=== PATIENT | male | born 1955 | race Caucasian/White ===

== ENCOUNTER 2018-01-10 11:55 | Inpatient (IN) | payer MEDICARE ==
[2018-01-10] VITALS (12 sets, daily range): BP systolic 97–134; BP diastolic 60–86; BMI 28.1
[~2018-01-10] VITALS: Ht 185.4 cm; Wt 97.8 kg
--- NOTE | ~2018-01-10 | EC ---
PATIENT:JAN CAMERON DATE OF SERVICE: 01/10/18 SEX: M MEDICAL RECORD: [id number] DATE OF : 53 [facility] AGE OF PATIENT: 62 ADMISSION DATE: 01/10/18 REFERRING PHYSICIAN: INTERPRETING PHYSICIAN: JOHN KENNY MD ECHOCARDIOGRAM REPORT ECHO CHARGES 5 ECHO LIMITED Date: 01/12/18 CLINICAL DIAGNOSIS: CHF HX OF CAD ECHOCARDIOGRAPHIC MEASUREMENTS (adult normal given) AC root (d.<3.7cm) cm LV Septum d (<1.2 cm> cm Valve Excursion cm LV Septum (systole) cm Left Atria (s.<4.0cm> cm LVPW d(<1.2cm) cm RV (d.<2.3cm) 3.8 cm LVPW (sytole) cm LV diastole(<5.6CM) 5.9 cm MV E-F(>70mm/sec) cm LV systole 4.5 cm LVOT Diameter cm MV exc.(>10mm) cm Est.ejection fraction (50-75%) % DOPPLER: LVIT cm/sec A cm/sec E cm/sec LA cm/sec RVSP 20 mmHg LVOT cm/sec AOP1/2T m/s Asc. Ao cm/sec RVOT cm/sec RA cm/sec PA cm/sec AV Gradient Peak mmHg AV Mean mmHg AV Area cm MV Gradient Peak mmHg MV Mean mmHg MV Area cm COMMENTS: Construction Executive: 2 BEBO SHAHID Air Battle Manager: 4 Dr. Kenny TAPE# PACS Pericardial Effusion N DATE OF SERVICE: PCEDURE: Transthoracic echocardiogram. FINDINGS: Limited study for function. The patient's left ventricular function is normal. The left ventricular size is upper limits of normal. There are no obvious regional wall motion abnormalities. Ejection fraction is 60% to 65%. TRANSINT:[id number] Voice Confirmation ID: [id number] DOCUMENT ID: [id number] ECHOCARDIOGRAM REPORT [id number] JAN CAMERON JOHN KENNY MD CC: [id number] DICTATION DATE: 01/13/18 1044 REMOTE SENSING SCIENTIST: 01/13/18 1141 ADM IN [place] [id number] [place] [address]
--- NOTE | ~2018-01-10 | CN ---
PATIENT NAME:JAN CHOUDHARY MEDICAL RECORD: [id number] : 53 LOCATION:D. D.1213 ADMIT DATE: 01/10/18 ACCOUNT: [id number] CONSULTING PHYSICIAN: KVNG HART MD REFERRING PHYSICIAN: CRISTOFER HAMEED MD DATE OF CONSULTATION: 01/13/2018 CONSULT REQUESTING PHYSICIAN: Vince Vaughn MD REASON FOR CONSULTATION: Pneumonia, positive D-dimer. HISTORY OF PRESENT ILLNESS: Mr. Choudhary is a 62-year-old gentleman admitted on 01/10/2018 with shortness of breath, pneumonia, and acute exacerbation of COPD. On arrival to the ER, the patient was in atrial fibrillation with RVR. Chest radiograph showed infiltrate. Now, he is feeling better, he is breathing better. REVIEW OF SYSTEMS: As in history of present illness. PAST MEDICAL HISTORY: 1. COPD. 2. Chronic hypoxic respiratory failure. 3. Congestive heart failure. 4. Diabetes mellitus. 5. Arthritis. 6. Chronic backache. 7. Functional paraplegia, the patient is wheelchair and bedbound. PAST SURGICAL HISTORY: 1. He has abdominal surgery, laparotomy. 2. PEG placement. 3. Hip surgery. 4. History of tracheostomy in the past. ALLERGIES: HE IS ALLERGIC TO HALOPERIDOL. MEDICATIONS: On Beyond Credentials is reviewed. PERSONAL AND SOCIAL HISTORY: The patient is still current everyday smoker. He is also smoking marijuana. He is a nondrinker. FAMILY HISTORY: Significant for cardiovascular diseases. PHYSICAL EXAMINATION: GENERAL: Now, the patient is lying comfortably in bed. He is not in acute distress. VITAL SIGNS: The blood pressure is 137/77, pulse is 97, respiration is 18, temperature 99.1, SPO2 is 96% on 2 liters nasal cannula. HEENT: Conjunctivae are pink. Sclerae are not icteric. NECK: Supple. There is no JVD. CHEST: The chest excursion is minimal on both sides. There is a crackle at the right base. HEART: Rate and rhythm irregular. Normal sound. No murmur. ABDOMEN: Soft, bowel sounds present. No hepatosplenomegaly. RECTAL: Deferred. CONSULT REPORT [id number] JAN CHOUDHARY EXTREMITIES: No cyanosis, no clubbing. There is no pedal edema. CENTRAL NERVOUS SYSTEM: The patient is awake and alert. There is no obvious cranial nerve abnormality. The patient has a functional paraplegia. OTHER LABORATORY DATA: CBC: WBC is 6.5, hemoglobin is 8.8, hematocrit is 27.2, the platelet count 141. Chemistry: Sodium is 140, potassium 3.4, BUN is 27, creatinine is 1.8, it improved from 2. ABG on admission; the pH is 7.44, pCO2 is 52.1, the pO2 is 67, bicarb is 35.7, the saturation is 93.3%. This was done under 9 liters nasal cannula. IMPRESSION: 1. Iduka-rw-nepxvjz hypoxic respiratory failure. The patient required 6 liter oxygen nasal cannula while the patient is just on 2 liters at home. 2. Acute exacerbation of COPD. 3. Pneumonia, right lower lobe, most likely community-acquired pneumonia. 4. Atrial fibrillation with RVR. 5. Tobacco dependence syndrome. 6. Xoowv-aj-vutcllt kidney disease. 7. Anemia. 8. Functional paraplegia. RECOMMENDATION: 1. Continue Rocephin. I will add Levaquin IV. 2. Brovana/budesonide nebulizer. 3. Albuterol/ipratropium nebulizer. 4. Supplemental oxygen. The patient's V/Q scan is low probability due to pneumonia in the right lower lobe. I will check ultrasound of the lower extremity to rule out any DVT. The patient is high risk for the DVT due to his functional paraplegia. 5. Follow up labs and chest radiograph in the morning. 6. Anticoagulation, I will leave to the cardiology for atrial fibrillation. Dr. Vaughn, thank you for involving me in the care of Mr. Choudhary. TRANSINT:[id number] Voice Confirmation ID: [id number] DOCUMENT ID: [id number] KVNG HART MD at 1711 CC: [id number] DICTATION DATE: 01/13/18 1445 DRY PAN FEEDER: 01/13/18 1547 DIS IN 01/14/18 [facility] [address] [place] [address]
[~2018-01-10 11:55] MED LIST: ALTACE5 MG PO; AMBIEN10 MG PO; BROVANA15 MCG/2 M INH; COMBIVENT RESPIM4 GM INH; CORDARONE200 MG PO; DUONEB 2.5-0.5 M3 ML UPD; FLOMAX0.4 MG PO; FLORAJEN3 CAPS460 MG PO; IPRAT-ALBUT 0.5-3 ML UPD; LASIX40 MG PO; LEVAQUIN500 MG PO; MOTRIN800 MG PO; NEURONTIN 300300 MG PO; NICODERM C1 PATCH .3 TRANSDERM; NORCO 10/325 TA1 TA1 PO; PLAVIX75 MG PO; PROTONIX40 MG PO; PULMICORT 11 MG/2 ML NEB; ROCEPHIN 1 GM/D51 G1 IV; TYLENOL325 MG PO; VENTOLIN HFA18 GM INH; XANAX1 MG PO; ZITHROMAX250 MG PO
[2018-01-10 12:53] LABS: BASOPHILS 0.3 % (0-2); EOSINOPHILS 0.8 % (0-7); HEMATOCRIT 34.1 % (42.0-54.0); HEMOGLOBIN 10.9 g/dL (13.5-17.5); IMMATURE GRANULOCYTES 0.4 % (0-5); LYMPHOCYTES 11.2 % (15-50); MCH 30.8 pg (26.0-34.0); MCV 96.3 fL (80.0-100.0); MEAN PLATELET VOLUME 11.7 fL (7.4-10.4); MONOCYTES 6.6 % (2-11); NEUTROPHILS 80.7 % (40-80); PLATELET COUNT 124 10x3/uL (130-400); RBC 3.54 10x6/uL (4.20-6.10); RDW 13.1 % (11.5-14.5); WBC 7.7 10x3/uL (4.8-10.8)
[2018-01-10 13:02] LABS: INR 1.1 (0.85-1.17); PROTIME 13.7 SECONDS (11.6-15.0)
[2018-01-10 13:09] LABS: ALBUMIN 3.2 g/dL (3.4-5.0); ALKALINE PHOSPHATASE 60 U/L (46-116); ALT (SGPT) 13 U/L (10-68); BILIRUBIN - TOTAL 0.52 mg/dL (0.2-1.3); CALC OSMOLALITY 279 mosm/kg (275-300); CARBON DIOXIDE 36.4 mmol/L (21.0-32.0); CHLORIDE - SERUM 98 mmol/L (98-107); CREATININE - SERUM 2.3 mg/dL (0.6-1.3); GLUCOSE 101 mg/dL (74-106); POTASSIUM - SERUM 4.1 mmol/L (3.5-5.1); PROTEIN - SERUM 7.8 g/dL (6.4-8.2); SODIUM 138 mmol/L (136-145); UREA NITROGEN 25 mg/dL (7-18); eGFR NON AFRICAN AMERICAN 31 mL/min (90-120)
[2018-01-10 13:30] LABS: CKMB 0.3 U/L (0.0-3.6); CREATINE KINASE 78 UL (21-232); MAGNESIUM - SERUM 1.6 mg/dL (1.8-2.4); PRO BNP 1005 pg/mL (0-125)
[2018-01-10 13:32] LABS: TROPONIN-I 0.071 ng/mL (0.000-0.060)
[2018-01-10 17:34] LABS: % SATURATION 5 % (15-55); IRON 14 ug/dl (35-150); TOTAL IRON BIND CAPACITY 256 ug/dl (260-445); UNSAT IRON BIND CAPACITY 242 ug/dl (150-375)
[2018-01-11] VITALS (19 sets, daily range): BP systolic 99–141; BP diastolic 50–79; Ht 185.4 cm; Wt 97.8 kg
[2018-01-11 06:51] LABS: BASOPHILS 0.1 % (0-2); EOSINOPHILS 0.1 % (0-7); IMMATURE GRANULOCYTES 0.2 % (0-5); MCHC 31.9 g/dL (31.0-37.0); MEAN PLATELET VOLUME 11.1 fL (7.4-10.4); MONOCYTES 5.6 % (2-11); RDW 13.5 % (11.5-14.5)
[2018-01-11 07:08] LABS: HEMOGLOBIN 8.3 g/dL (13.5-17.5); RBC 2.68 10x6/uL (4.20-6.10); WBC 9.7 10x3/uL (4.8-10.8)
[2018-01-11 07:09] LABS: PLATELET COUNT 85 10x3/uL (130-400)
[2018-01-11 07:14] LABS: ANION GAP 6.7 mmol/L (8-16); BILIRUBIN - TOTAL 0.26 mg/dL (0.2-1.3); CALCIUM 7.9 mg/dL (8.5-10.1); CARBON DIOXIDE 34.4 mmol/L (21.0-32.0); POTASSIUM - SERUM 4.1 mmol/L (3.5-5.1); PROTEIN - SERUM 6.5 g/dL (6.4-8.2)
[2018-01-11 07:15] LABS: ALBUMIN 2.2 g/dL (3.4-5.0)
[2018-01-11 07:35] LABS: PLATELET ESTIMATE DECREASED
[2018-01-12] VITALS: BP 138/71
[2018-01-12 04:00] VITALS: BP 150/76
[2018-01-12 07:09] VITALS: BP 161/62
[2018-01-12 10:52] VITALS: BP 147/72
[2018-01-12 11:16] LABS: BASOPHILS 0.1 % (0-2); EOSINOPHILS 0.9 % (0-7); HEMATOCRIT 25.5 % (42.0-54.0); HEMOGLOBIN 8.3 g/dL (13.5-17.5); IMMATURE GRANULOCYTES 0.3 % (0-5); LYMPHOCYTES 12.1 % (15-50); MCH 30.9 pg (26.0-34.0); MCHC 32.5 g/dL (31.0-37.0); MEAN PLATELET VOLUME 11.2 fL (7.4-10.4); MONOCYTES 7.1 % (2-11); NEUTROPHILS 79.5 % (40-80); RBC 2.69 10x6/uL (4.20-6.10); RDW 13.5 % (11.5-14.5); WBC 7.8 10x3/uL (4.8-10.8)
[2018-01-12 11:17] LABS: MCV 94.8 fL (80.0-100.0); PLATELET COUNT 117 10x3/uL (130-400)
[2018-01-12 11:26] LABS: ALBUMIN 2.5 g/dL (3.4-5.0); ANION GAP 10.2 mmol/L (8-16); BILIRUBIN - TOTAL 0.27 mg/dL (0.2-1.3); CALCIUM 8.1 mg/dL (8.5-10.1); CARBON DIOXIDE 30.9 mmol/L (21.0-32.0); CREATININE - SERUM 1.9 mg/dL (0.6-1.3); MAGNESIUM - SERUM 1.7 mg/dL (1.8-2.4); POTASSIUM - SERUM 4.1 mmol/L (3.5-5.1); PROTEIN - SERUM 6.6 g/dL (6.4-8.2)
[2018-01-12 18:58] VITALS: BP 156/88
[2018-01-13 00:06] VITALS: BP 130/55
[2018-01-13 04:00] VITALS: BP 130/64
[2018-01-13 06:22] LABS: BASOPHILS 0.2 % (0-2); EOSINOPHILS 0.9 % (0-7); HEMATOCRIT 27.2 % (42.0-54.0); HEMOGLOBIN 8.8 g/dL (13.5-17.5); IMMATURE GRANULOCYTES 0.2 % (0-5); MCH 30.7 pg (26.0-34.0); MCHC 32.4 g/dL (31.0-37.0); MCV 94.8 fL (80.0-100.0); MEAN PLATELET VOLUME 11.2 fL (7.4-10.4); MONOCYTES 7.4 % (2-11); NEUTROPHILS 73.3 % (40-80); RBC 2.87 10x6/uL (4.20-6.10); RDW 13.5 % (11.5-14.5); WBC 6.5 10x3/uL (4.8-10.8)
[2018-01-13 06:37] LABS: ANION GAP 9.5 mmol/L (8-16); CALCIUM 8.6 mg/dL (8.5-10.1); CARBON DIOXIDE 31.9 mmol/L (21.0-32.0); CREATININE - SERUM 1.8 mg/dL (0.6-1.3); POTASSIUM - SERUM 3.4 mmol/L (3.5-5.1)
[2018-01-13 06:48] LABS: PLATELET COUNT 141 10x3/uL (130-400)
[2018-01-13 07:43] VITALS: BP 158/97
[2018-01-13 11:12] LABS: FOLATE (FOLIC ACID) - SERUM 3.8 ng/mL (>3.0)
[2018-01-13 12:52] VITALS: BP 137/77
[2018-01-13 16:00] VITALS: BP 151/74
[2018-01-13 20:00] VITALS: BP 148/67
[2018-01-14 00:30] VITALS: BP 142/83
[2018-01-14 07:09] LABS: BASOPHILS 0.2 % (0-2); HEMATOCRIT 26.3 % (42.0-54.0); HEMOGLOBIN 8.5 g/dL (13.5-17.5); IMMATURE GRANULOCYTES 0.7 % (0-5); LYMPHOCYTES 34.3 % (15-50); MCH 30.5 pg (26.0-34.0); MCHC 32.3 g/dL (31.0-37.0); MCV 94.3 fL (80.0-100.0); MEAN PLATELET VOLUME 10.7 fL (7.4-10.4); MONOCYTES 10.6 % (2-11); NEUTROPHILS 52.2 % (40-80); PLATELET COUNT 130 10x3/uL (130-400); RBC 2.79 10x6/uL (4.20-6.10); RDW 13.2 % (11.5-14.5)
[2018-01-14 07:16] LABS: ANION GAP 7.2 mmol/L (8-16); CALCIUM 8.9 mg/dL (8.5-10.1); CARBON DIOXIDE 32.5 mmol/L (21.0-32.0); CREATININE - SERUM 1.9 mg/dL (0.6-1.3); POTASSIUM - SERUM 3.7 mmol/L (3.5-5.1)
[2018-01-14 07:18] LABS: WBC 4.5 10x3/uL (4.8-10.8)
[2018-01-14 08:47] VITALS: BP 126/67
[2018-01-14 12:49] VITALS: BP 130/77
[2018-01-14] MEDS ORDERED: LEVOFLOXACIN500 MG PO (14:22)
[2018-01-14 16:44] VITALS: BP 143/79
== END 2018-01-14 19:48 | disposition home or self-care (01) | DRG 177 ==
LOC: D.ER 11:55 → D.EDHOLD 13:57 → D.M3 13:57 → D.ICU 13:57 → D.M2 14:24 → D.ICU 15:01 → D.M3 01-11 18:53
PROVIDERS: Emergency Medicine; Internal Medicine Nephrology
DX: J69.0 Pneumonitis due to inhalation of food and vomit (principal); J96.21 Acute and chronic respiratory failure with hypoxia; J44.1 Chronic obstructive pulmonary disease with (acute) exacerbation; N17.9 Acute kidney failure, unspecified; I48.0 Paroxysmal atrial fibrillation; E11.22 Type 2 diabetes mellitus with diabetic chronic kidney disease; I12.9 Hypertensive chronic kidney disease with stage 1 through stage 4 chronic kidney disease, or unspecified chronic kidney disease; N18.9 Chronic kidney disease, unspecified; I25.10 Atherosclerotic heart disease of native coronary artery without angina pectoris; D64.9 Anemia, unspecified; E83.42 Hypomagnesemia; F44.4 Conversion disorder with motor symptom or deficit

== ENCOUNTER 2018-03-12 06:10 | Day surgery (SDC) | payer MEDICARE ==
[2018-03-11 09:42] LABS: HEMATOCRIT 36.3 % (42.0-54.0); HEMOGLOBIN 11.5 g/dL (13.5-17.5); LYMPHOCYTES 21.4 % (15-50); MCH 30.9 pg (26.0-34.0); MCHC 31.7 g/dL (31.0-37.0); MCV 97.6 fL (80.0-100.0); MEAN PLATELET VOLUME 10.5 fL (7.4-10.4); NEUTROPHILS 71.3 % (40-80); PLATELET COUNT 128 10x3/uL (130-400); RBC 3.72 10x6/uL (4.20-6.10); WBC 7.1 10x3/uL (4.8-10.8)
[2018-03-11 09:55] LABS: ANION GAP 11.3 mmol/L (8-16); CALCIUM 8.8 mg/dL (8.5-10.1); CARBON DIOXIDE 37.8 mmol/L (21.0-32.0); CREATININE - SERUM 1.8 mg/dL (0.6-1.3); POTASSIUM - SERUM 4.1 mmol/L (3.5-5.1)
[~2018-03-12] VITALS: Ht 185.4 cm; Wt 104.5 kg
[~2018-03-12 06:10] MED LIST changes: +LEVOFLOXACIN500 MG PO
[2018-03-12] MEDS ORDERED: BETAPACE 80 MG80 MG PO (06:22)
[2018-03-12] MEDS ORDERED: HYSINGLA ER30 MG PO (06:23)
[2018-03-12 06:35] VITALS: Ht 185.4 cm; Wt 104.5 kg
--- NOTE | 2018-03-12 10:13 | NUR ---
PT ABLE TO VOID AT THIS TIME 500ML OF CLEAR YELLOW URINE.
== END 2018-03-12 11:45 | disposition home or self-care (01) ==
LOC: D.OPS 06:10 → D.PAN 07:30 → D.OPS 11:45
PROVIDERS: Orthopaedic Surgery
DX: S52.502A Unspecified fracture of the lower end of left radius, initial encounter for closed fracture (principal); S52.602A Unspecified fracture of lower end of left ulna, initial encounter for closed fracture

== ENCOUNTER 2019-04-07 16:57 | Inpatient (IN) | payer MEDICARE ==
[~2019-04-07] VITALS: Ht 185.4 cm; Wt 93.4 kg
[~2019-04-07 16:57] MED LIST changes: +BETAPACE 80 MG80 MG PO; +HYSINGLA ER30 MG PO
[2019-04-07 17:59] LABS: BASOPHILS 0.1 % (0-2); EOSINOPHILS 0.3 % (0-7); HEMATOCRIT 36.4 % (42.0-54.0); HEMOGLOBIN 10.9 g/dL (13.5-17.5); IMMATURE GRANULOCYTES 0.2 % (0-5); MCH 30.1 pg (26.0-34.0); MCHC 29.9 g/dL (31.0-37.0); MCV 100.6 fL (80.0-100.0); MEAN PLATELET VOLUME 11.4 fL (7.4-10.4); MONOCYTES 5.1 % (2-11); NEUTROPHILS 82.3 % (40-80); PLATELET COUNT 113 10x3/uL (130-400); RBC 3.62 10x6/uL (4.20-6.10); RDW 14.2 % (11.5-14.5); WBC 13.3 10x3/uL (4.8-10.8)
[2019-04-07 18:20] LABS: APTT 25.9 SECONDS (22.8-39.4); INR 1.09 (0.85-1.17); PROTIME 14.1 SECONDS (11.6-15.0)
[2019-04-07 18:46] LABS: ALBUMIN 2.6 g/dL (3.4-5.0); ALKALINE PHOSPHATASE 54 U/L (30-120); ALT (SGPT) 8 U/L (10-68); CALC OSMOLALITY 275 mosm/kg (275-300); CALCIUM 8.5 mg/dL (8.5-10.1); CHLORIDE - SERUM 92 mmol/L (98-107); CKMB 0.4 U/L (0.0-3.6); CREATINE KINASE 37 UL (21-232); CREATININE - SERUM 1.8 mg/dL (0.6-1.3); GLUCOSE 162 mg/dL (74-106); PRO BNP 2509 pg/mL (0-125); PROTEIN - SERUM 8.4 g/dL (6.4-8.2); SODIUM 135 mmol/L (136-145); TROPONIN-I < 0.017 ng/mL (0.000-0.060); UREA NITROGEN 19 mg/dL (7-18); eGFR NON AFRICAN AMERICAN 40 mL/min (90-120)
[2019-04-07 18:50] LABS: POTASSIUM - SERUM 2.9 mmol/L (3.5-5.1)
[2019-04-07 18:51] LABS: CARBON DIOXIDE 49.1 mmol/L (21.0-32.0)
[2019-04-07 19:40] VITALS: BP 132/74
[2019-04-07 21:48] VITALS: BP 129/73
--- NOTE | 2019-04-07 22:30 | NUR ---
ACCOMPANY MD FOR RECTAL EXAM
--- NOTE | 2019-04-07 23:00 | NUR ---
ADMITTED FROM ER VIA STRETCHER THEN AMBLITORY BETWEEN BEDS BED LOW AND LOCKED AND CALL LIGHT PROVIDED
[2019-04-08] VITALS (7 sets, daily range): BP systolic 94–137; BP diastolic 45–77; Ht 185.4 cm; Wt 93.4 kg
--- NOTE | 2019-04-08 00:12 | NUR ---
PT IS NOW REFUSING IV FLUIDS INCLUDING KCL
[2019-04-08 06:40] LABS: BASOPHILS 0.2 % (0-2); EOSINOPHILS 0.7 % (0-7); HEMATOCRIT 34.2 % (42.0-54.0); HEMOGLOBIN 10.2 g/dL (13.5-17.5); IMMATURE GRANULOCYTES 0.4 % (0-5); LYMPHOCYTES 17.2 % (15-50); MCH 29.7 pg (26.0-34.0); MCHC 29.8 g/dL (31.0-37.0); MCV 99.4 fL (80.0-100.0); MEAN PLATELET VOLUME 11.6 fL (7.4-10.4); NEUTROPHILS 74.5 % (40-80); PLATELET COUNT 111 10x3/uL (130-400); RBC 3.44 10x6/uL (4.20-6.10); RDW 14.2 % (11.5-14.5); WBC 11.5 10x3/uL (4.8-10.8)
[2019-04-08 07:15] LABS: ALBUMIN 2.4 g/dL (3.4-5.0); ALKALINE PHOSPHATASE 52 U/L (30-120); ALT (SGPT) 8 U/L (10-68); BILIRUBIN - TOTAL 0.64 mg/dL (0.2-1.3); CALCIUM 8.1 mg/dL (8.5-10.1); CHLORIDE - SERUM 95 mmol/L (98-107); CKMB 0.3 U/L (0.0-3.6); CREATINE KINASE 29 UL (21-232); CREATININE - SERUM 1.6 mg/dL (0.6-1.3); POTASSIUM - SERUM 3.3 mmol/L (3.5-5.1); PROTEIN - SERUM 7.1 g/dL (6.4-8.2); SODIUM 139 mmol/L (136-145); TROPONIN-I < 0.017 ng/mL (0.000-0.060); UREA NITROGEN 18 mg/dL (7-18); eGFR NON AFRICAN AMERICAN 46 mL/min (90-120)
[2019-04-08 08:04] LABS: CALC OSMOLALITY 279 mosm/kg (275-300); GLUCOSE 104 mg/dL (74-106)
[2019-04-08 08:09] LABS: CARBON DIOXIDE 51.1 mmol/L (21.0-32.0)
--- NOTE | 2019-04-08 08:43 | NUR ---
PT PULSE OX 80% ON 3LITER NC PER TRACH. RT NOTIFIED AND ASSESSED. PLACED ON TRACH COLLAR BUT NOT MUCH BETTER, WILL TRY AND CLEAN TRACH FOR PLUG OR OBSTRUCTION. PT IS RESTING QUIETLY AND DOES NOT SEEM TO BE IN ANY DISTRESS.
--- NOTE | 2019-04-08 12:26 | NUR ---
PT HAS DISCONNECTED TUBING GOING TO TRACH COLLAR AND PLACED DIRECTLY INTO TRACH HE DOES AT HOME. RT NOTIFIED ALSO. EDUCATED ON HOSPITAL EQUIPMENT AND STANDARD OF CARE BUT HE STATES IT WORKS THAT WAY AT HOME SO HE IS DOING IT HERE.
--- NOTE | 2019-04-08 14:20 | NUR ---
PATIENT REFUSES TO FOLLOWING HOSPITAL PROTOCOL/PROCEDURE WHRN CARING FOR TRACH. PATIENT'S SPO2 WAS 76% UPON FIRST TIME ASSESSMENT. FOUND PATIENT WITH O2 TUBING INSERTED INTO HIS TRACH. ADVISED PATIENT THAT I WOUD NEED TO GET HIM ON THE PROPER TRACH COLLAR AND HIGHER O2 IN ORDER TO GET HIS SPO2 HIGHER. PATIENT WAS NOT HAPPY THAT I PLACED HIM ON A VENTI TRACH COLLAR AT40% (8LPM O2). PATIENT STATED THAT HE CAN'T FUNTION OR SMOKE WITH THIS DEVICE. ADVISED PATIENT THAT WHILE HE WAS IN THE HOSPITAL HE WOULD HAVE TO BE ON THE PROPER EQUIPMENT FOR HIS TRACH IN ORDER FOR US TO PROPERLY AND SAFELY TREAT HIM. ALSO CLEAN IS INNER CANNULA. PATIENT WAS NOT HAPPY SO I LET HIM EAT AND WOULD COME BACK TO RE-ASSESS. CAME BACK AND PATIENT HAD REMOVED VENTI TRACH COLLAR AND PLACE O2 TUBING INSIDE TRACH. AT THIS POINT UNABLE TO PROPER CARE FOR PATIENT HE IS NON-COMPLIANT. RESPIRATORY IS UNABLE TO PROPERLY ACHEIVE THE PROPER O2 LEVEL, HE MAINTAIN SECRETION, OR GIVE BREATHING TREATMENT THAT WOULD HELP HIM GET BETTER. NOTIFIED DR. CAMACHO REGARDING THIS PATIENT AND THAT I AM NOT ABLE TO PROPERLY NOR SAFELY TREAT PATIENT AT THIS TIME.
--- NOTE | 2019-04-08 19:06 | NUR ---
PT STATES BETAPACE AND NEURONTIN DOSES WRONG ON APR. LIST PROVIDED TO VERIFY DOSING AND ORDERS CHANGED TO MATCH.
--- NOTE | 2019-04-08 19:20 | NUR ---
EVENING ROUNDS COMPLETED. VSS, AAOX4, NO S/S OF RT DISTRESS. TRACH NOTED/INTACT. DR. CAMACHO AT BEDSIDE ALONGSIDE FAMILY MEMBER. NO S/S OR DISTRESS. WILL CTM. WILL CPOC. CL WITHIN REACH.
--- NOTE | 2019-04-08 20:16 | NUR ---
PT STATES HE NEEDS HIS TRACH SUCTIONED. NOTIFIED RT. RT AT THE BEDSIDE AT THIS TIME, PERFORMING TRACH SUCTION. PT IN NO DISTRESS. WILL CTM. CL WITHIN REACH.
[2019-04-09] VITALS: BP 98/53
--- NOTE | 2019-04-09 02:53 | NUR ---
PT IN BED WITH BOTH EYES CLOSED. NO S/S OF RT DISTRESS. 77 CONTROLLED A-FIB ON MONITOR.
[2019-04-09 04:00] VITALS: BP 100/60
[2019-04-09 06:24] LABS: BASOPHILS 0.2 % (0-2); EOSINOPHILS 3.1 % (0-7); HEMATOCRIT 33.1 % (42.0-54.0); HEMOGLOBIN 9.8 g/dL (13.5-17.5); IMMATURE GRANULOCYTES 0.2 % (0-5); MCH 29.6 pg (26.0-34.0); MCHC 29.6 g/dL (31.0-37.0); MEAN PLATELET VOLUME 11.7 fL (7.4-10.4); NEUTROPHILS 59.5 % (40-80); PLATELET COUNT 117 10x3/uL (130-400); RBC 3.31 10x6/uL (4.20-6.10); RDW 14.1 % (11.5-14.5)
[2019-04-09 06:28] LABS: WBC 6.1 10x3/uL (4.8-10.8)
[2019-04-09 07:14] LABS: CALCIUM 8.6 mg/dL (8.5-10.1); CREATININE - SERUM 1.5 mg/dL (0.6-1.3); MAGNESIUM - SERUM 2.3 mg/dL (1.8-2.4); POTASSIUM - SERUM 3.6 mmol/L (3.5-5.1)
[2019-04-09 07:33] LABS: ANION GAP 0.1 mmol/L (8-16)
[2019-04-09 07:41] LABS: CARBON DIOXIDE 48.5 mmol/L (21.0-32.0)
--- NOTE | 2019-04-09 08:02 | NUR ---
RECIEVED REPORT. PATIENT IS RESTING ON HIS BACK IN BED AT THIS TIME. DENIES ANY NEEDS.
[2019-04-09 12:34] VITALS: BP 104/67
--- NOTE | 2019-04-09 12:45 | NUR ---
REPORTED CO2 LEVEL TO DR WOOTEN.
--- NOTE | 2019-04-09 13:24 | NUR ---
PATIENTS BLOOD PRESSURE CHECKED 109/57 AND HEART RATE 68. WE WILL CLOSELY MONITOR BLOOD PRESSURE AND PULSE AFTER DOSE OF LASIX. RN NOTIFIED OF BLOOD PRESSURE AND PULSE PRIOR TO ADMINISTRATION, AGREED PATIENT NEEDS MEDICATIONS.
--- NOTE | 2019-04-09 16:08 | NUR ---
Rehab Notes- Acute Inpatient Rehab prescreen order received. The patient has AETNA insurance and will require a PreAuth prior to an inpatient acute rehab stay. Per the patient's PT Eval noted to close back to baseline, OT Irmaal recommends home with home health. THe patient is too high level for inpatient acute rehab stay. Thank you for this referral! Tammie Cameron RN Clinical Liaison, [facility] Re[facility]
--- NOTE | 2019-04-09 16:22 | NUR ---
OT NOTE: PT COMPLETED SUPINE TO SIT WITH SBA. PT COMPLETED EOB SITTING BALANCE WITH SBA WHILE DOFFING SOCKS. PT COMPLETED SIT TO STAND WITH MIN A. PT COMPLETED BUE AROM EXS AT EOB WITH SPV. PT STATED " IF ANYONE ELSE BOTHERS ME TONIGHT , I WILL DO WHAT I DID TO THAT MEG WITH THE BREATHING MACHINE LAST NIGHT. I USED MY NAILS AND SCRATCHED THE SHIT OUT OF HIM." PTS REPLIED " HE WILL DO IT, HE CANT SLEEP AND YALL COME IN AND OUT ALL THROUGH THE DAY AND NIGHT." NURSING NOTIFIED. [phone] THANK YOU, MARIELA MONTAGUE
[2019-04-09 16:45] VITALS: BP 119/67
--- NOTE | 2019-04-09 19:34 | NUR ---
RECIEVED BEDSIDE REPORT. ROUNDS COMPLETED. PT RESTING IN BED WITH BOTH EYES CLOSED. NO S/S OF RT DISTRESS. TRACH COLLAR INTACT. PT DENIES PAIN AT THIS TIME. WILL CPOC. CL WITHIN REACH, BED IN LOW, SR UP X2.
[2019-04-09 20:00] VITALS: BP 111/42
[2019-04-10] VITALS: BP 132/69
--- NOTE | 2019-04-10 02:45 | NUR ---
PT TRACH SUCTIONED. PRN NORCO GIVEN FOR PAIN. PT VOICED THANKS. WILL CTM.
[2019-04-10 04:00] VITALS: BP 99/54
[2019-04-10 06:03] LABS: BASOPHILS 0.2 % (0-2); EOSINOPHILS 3.5 % (0-7); HEMATOCRIT 35.2 % (42.0-54.0); HEMOGLOBIN 10.3 g/dL (13.5-17.5); IMMATURE GRANULOCYTES 0.2 % (0-5); LYMPHOCYTES 37.2 % (15-50); MCH 29.6 pg (26.0-34.0); MCHC 29.3 g/dL (31.0-37.0); MCV 101.1 fL (80.0-100.0); MEAN PLATELET VOLUME 11.8 fL (7.4-10.4); MONOCYTES 8.8 % (2-11); NEUTROPHILS 50.1 % (40-80); RBC 3.48 10x6/uL (4.20-6.10); RDW 14.2 % (11.5-14.5)
[2019-04-10 06:08] LABS: PLATELET COUNT 144 10x3/uL (130-400); WBC 4.5 10x3/uL (4.8-10.8)
[2019-04-10 06:17] LABS: CALC OSMOLALITY 284 mosm/kg (275-300); CALCIUM 8.6 mg/dL (8.5-10.1); CHLORIDE - SERUM 99 mmol/L (98-107); GLUCOSE 107 mg/dL (74-106); MAGNESIUM - SERUM 2.1 mg/dL (1.8-2.4); POTASSIUM - SERUM 3.8 mmol/L (3.5-5.1); SODIUM 140 mmol/L (136-145); UREA NITROGEN 30 mg/dL (7-18)
[2019-04-10 06:22] LABS: CARBON DIOXIDE 46.3 mmol/L (21.0-32.0); eGFR NON AFRICAN AMERICAN 36 mL/min (90-120)
--- NOTE | 2019-04-10 07:10 | NUR ---
REPORT RECEIVED FROM HOSE MAKER AND PATIENT CARE ASSUMED. PATIENT LAYING IN BED AWAKE, ALERT AND ORIENTED X 4. PATIENT DENIES ANY NEEDS OR PAIN. WILL CONTINUE WITH PLAN OF CARE. SR UP X 2 BED IN LOW POSITION AND CALL LIGHT IN REACH.
[2019-04-10 10:20] VITALS: BP 109/66
[2019-04-10 13:49] VITALS: BP 115/68
--- NOTE | 2019-04-10 13:54 | NUR ---
Nutrition Follow-up: Noted pt d/c'd from [facility] 2/2 noncompliance with recs; increased risk for aspiration. Diet: Diabetic, Cardiac PO intake: 25-75% yesterday Wt: 210# (04/10); 207.1# (04/08) No BMs recorded Labs noted: Glu 107 Meds noted: Prednisone, Lasix, KDur -Offer Glucerna with meals if avg PO intake <50%. -Monitor wt; noted daily wts ordered. -RD following.
--- NOTE | 2019-04-10 15:29 | NUR ---
PATIENT IS STABLE AND VSS. PATIENT DENIES ANY NEED OR PAIN. AT BS. WILL CONTINUE TO MONITOR. SR UPX 2 BED IN LOW POSITION AND CALL LIGHT IN REACH.
[2019-04-10 16:26] VITALS: BP 117/69
--- NOTE | 2019-04-10 19:10 | NUR ---
BEDSIDE REPORT RECEIVED FROM DAY SHIFT, PT CARE ASSUMED. INTRODUCED SELF AND WROTE NAME ON BOARD. PT LYING IN BED, WATCHING TV, AAOX4. REQUESTING TRACH SUCTIONED, PERFORMED WITH STERILE TECHNIQUE, PT TOLERATED WELL. DENIES ANY OTHER NEEDS AT THIS TIME. BED IN LOWEST POSITION, SR X1, CALL LIGHT WITHIN REACH. WILL CONTINUE TO MONITOR.
--- NOTE | 2019-04-10 19:20 | MORECARE ---
CASE MANAGEMENT DISCHARGE SUMMARY PATIENT: JAN CAMERON UNIT: [id number] ADM DATE: 04/07/19 AGE: 63 : 54 SEX: M ROOM/BED: D.2134 AUTHOR: ROXANNE AGUILA PHYSICIAN: REFERRING PHYSICIAN: KAM WOOTEN DO DATE OF SERVICE: 04/10/19 Discharge Plan Patient Name: JAN CAMERON [facility] [facility] 1955 Planned Disposition: Home Anticipated Discharge Date: 04/11/19 Discharge Date: Expected LOS: 4 Initial Reviewer: [email or web address] Initial Review Date: 04/10/2019 Generated: 04/10/19 8:20 pm DCPIA - Discharge Planning Initial Assessment Updated by [email or web address]: Cleve Abdi on 04/10/19 7:20 pm * Is the patient Alert and Oriented? Yes * How many steps to enter\exit or inside your home? NONE * PCP DR. ALEXANDER * Pharmacy [facility] * Preadmission Environment Home with Family * ADLs Independent * Equipment Cane Nebulizer Oxygen Power Chair or Electric Scooter Rolling Walker Shower Chair Suction and Supplies Walker * Other Equipment HOME AND PORTABLE OXYGEN [place] * List name and contact numbers for known caregivers / representatives who currently or will assist patient after discharge: PAUL CAMERON, SPOUSE, * Verbal permission to speak to the caregivers and representatives has been obtained from the patient. N/A * Community resources currently utilized None * Please name any agencies selected above. NONE * Additional services required to return to the preadmission environment? No * Can the patient safely return to the preadmission environment? Yes * Has this patient been hospitalized within the prior 30 days at any hospital? No Patient Name: JAN CAMERON Page [phone] at 1920 All edits/amendments must be made on the electronic document DICTATION DATE: 04/10/191919 QUARRY SUPERVISOR OPEN PIT: INGRID 04/10/191919 RPT#: [id number] DC DATE: STATUS: ADM IN [facility] [address] [place] [address] END OF REPORT
--- NOTE | 2019-04-10 19:29 | MORECARE ---
CASE MANAGEMENT DISCHARGE SUMMARY PATIENT: JAN CAMERON UNIT: [id number] ADM DATE: 04/07/19 AGE: 63 : 54 SEX: M ROOM/BED: D.8045 AUTHOR: ROXANNE AGUILA PHYSICIAN: REFERRING PHYSICIAN: KAM WOOTEN DO DATE OF SERVICE: 04/10/19 Discharge Plan Patient Name: JAN CAMERON Facility: [facility]:[place] : 1955 Planned Disposition: Home Anticipated Discharge Date: 04/11/19 Discharge Date: Expected LOS: 4 Initial Reviewer: [email or web address] Initial Review Date: 04/10/2019 Generated: 04/10/19 8:28 pm Comments DCP- Discharge Planning Updated by [email or web address]: Cleve Abdi on 04/10/19 6:[address] Patient Name: JAN CAMERON Admission Status: ER Accout number: [id number] Admission Date: 04-07-2019 : 1955 Admission Diagnosis: Attending: KAM WOOTEN Current LOS: 3 Anticipated DC Date: 04-11-2019 Planned Disposition: Home Primary Insurance: AETNA MEDICARE PPO or HMO Discharge Planning Comments: CM RECEIVED INPATIENT REHAB PRESCREENING ORDER, CM MET WITH PT IN ROOM TO DISCUSS DISCHARGE PLANNING AND NEEDS. PT REPORTS LIVING AT HOME INDEPENDENTLY WITH HIS . PT REPORTS HAVING ALL NEEDED MEDICAL EQUIPMENT FROM [facility] AND NO OUTSIDE SERVICES ASSISTING IN THE HOME. CM DISCUSSED AVAILABILITY OF HOME HEALTH, REHAB SERVICES AND MEDICAL EQUIPMENT. PT REPORTS ABILITY TO TRANSFER HIMSELF TO WHEELCHAIR, SPENDS MOST OF HIS TIME IN HIS ROOM AND DOES NOT WALK. PT DECLINES REHAB, DECLINES HOME HEALTH AND WILL DISCHARGE HOME WITH SPOUSE. PT REPORTS HIS WILL PICK HIM UP FOR DISCHARGE HOME. IMPORTANT MESSAGE FROM MEDICARE PROVIDED AND EXPLAINED. PT PLANS TO DISCHARGE HOME WITH , DECLINES REHAB AND HOME HEALTH. SPOUSE TO TRANSPORT HOME. CM TO FOLLOW AND ASSIST NEEDED. Digital Photographic Printer: Cleve Abdi DCPIA - Discharge Planning Initial Assessment Updated by [email or web address]: Cleve Abdi on 04/10/19 7:20 pm * Is the patient Alert and Oriented? Yes * How many steps to enter\exit or inside your home? NONE * PCP DR. CATHERINE * Pharmacy [facility] [address] * Preadmission Environment Home with Family * ADLs Independent * Equipment Cane Nebulizer Oxygen Power Chair or Electric Scooter Rolling Walker Shower Chair Suction and Supplies Walker * Other Equipment HOME AND PORTABLE OXYGEN [place] * List name and contact numbers for known caregivers / representatives who currently or will assist patient after discharge: PAUL CAMERON, SPOUSE, * Verbal permission to speak to the caregivers and representatives has been obtained from the patient. N/A * Community resources currently utilized None * Please name any agencies selected above. NONE * Additional services required to return to the preadmission environment? No * Can the patient safely return to the preadmission environment? Yes * Has this patient been hospitalized within the prior 30 days at any hospital? No Coverage Notice Reviewer: JENNA Abdi Notice Issued Date-Time: 04/10/2019 10:15 Notice Type: Patient Choice Letter Notice Delivered To: Patient Relationship to Patient: Dehairer Name: Delivery Method: HAND - Hand Delivered Alea Days: Prior Verbal Notification: Recipient Understood Notice: Yes Recipient Signature: Yes Med Rec Note Co-signed by Attending: Coverage Notice Comment: NO REHAB!! Reviewer: [email or web address] Abdi Notice Issued Date-Time: 04/10/2019 10:15 Notice Type: IM Discharge Notice Notice Delivered To: Patient Relationship to Patient: Dehairer Name: Delivery Method: HAND - Hand Delivered Alea Days: Prior Verbal Notification: Recipient Understood Notice: Yes Recipient Signature: Yes Med Rec Note Co-signed by Attending: Coverage Notice Comment: Last DP export: 04/10/19 6:20 p Patient Name: JAN CAMERON Page [phone] at 1929 All edits/amendments must be made on the electronic document DICTATION DATE: 04/10/191927 REGIONAL ACCOUNT DIRECTOR: INGRID 04/10/191927 RPT#: [id number] [place] DATE: STATUS: ADM IN [facility] [address] [place] [address] END OF REPORT
[2019-04-10 20:00] VITALS: BP 118/80
[2019-04-11] VITALS: BP 126/55
[2019-04-11 04:00] VITALS: BP 137/70
[2019-04-11 05:37] LABS: BASOPHILS 0.2 % (0-2); EOSINOPHILS 0.2 % (0-7); HEMATOCRIT 34.3 % (42.0-54.0); HEMOGLOBIN 10.2 g/dL (13.5-17.5); IMMATURE GRANULOCYTES 0.2 % (0-5); LYMPHOCYTES 25.2 % (15-50); MCH 29.3 pg (26.0-34.0); MCHC 29.7 g/dL (31.0-37.0); MEAN PLATELET VOLUME 11.5 fL (7.4-10.4); MONOCYTES 6.5 % (2-11); NEUTROPHILS 67.7 % (40-80); PLATELET COUNT 157 10x3/uL (130-400); RBC 3.48 10x6/uL (4.20-6.10); RDW 13.8 % (11.5-14.5)
[2019-04-11 05:43] LABS: MCV 98.6 fL (80.0-100.0); WBC 5.8 10x3/uL (4.8-10.8)
[2019-04-11 06:03] LABS: CREATININE - SERUM 1.8 mg/dL (0.6-1.3); MAGNESIUM - SERUM 2.3 mg/dL (1.8-2.4)
[2019-04-11 06:06] LABS: POTASSIUM - SERUM 4.5 mmol/L (3.5-5.1)
[2019-04-11 06:07] LABS: CARBON DIOXIDE 40.5 mmol/L (21.0-32.0)
--- NOTE | 2019-04-11 08:29 | NUR ---
PT RESTING, EYES COLOSED. RR EVEN AND UNLABORED. NO DISTRESS NOTED. BED IN LOWEST POSITION. CALL LIGHT WITHIN REACH. WILL CONTINUE TO MONITOR.
[2019-04-11 09:52] VITALS: BP 150/85
[2019-04-11 12:00] VITALS: BP 118/56
[2019-04-11 17:04] VITALS: BP 118/64
--- NOTE | 2019-04-11 19:10 | NUR ---
BEDSIDE REPORT RECEIVED FROM DAY SHIFT, PT CARE ASSUMED. WROTE NAME ON BOARD. PT SITTING UP IN BED VISITING WITH FAMILY AT BEDSIDE, AAOX4. DENIES ANY NEEDS AT THIS TIME. BED IN LOWEST POSITION, SR X1, CALL LIGHT WITHIN REACH. WILL CONTINUE TO MONITOR.
[2019-04-11 20:00] VITALS: BP 110/47
[2019-04-12] VITALS: BP 123/61
[2019-04-12 04:00] VITALS: BP 116/54
[2019-04-12 05:38] LABS: BASOPHILS 0.1 % (0-2); EOSINOPHILS 0.1 % (0-7); HEMATOCRIT 34.7 % (42.0-54.0); HEMOGLOBIN 10.6 g/dL (13.5-17.5); IMMATURE GRANULOCYTES 0.3 % (0-5); LYMPHOCYTES 21.6 % (15-50); MCH 29.7 pg (26.0-34.0); MCHC 30.5 g/dL (31.0-37.0); MCV 97.2 fL (80.0-100.0); MEAN PLATELET VOLUME 11.3 fL (7.4-10.4); MONOCYTES 5.6 % (2-11); NEUTROPHILS 72.3 % (40-80); PLATELET COUNT 176 10x3/uL (130-400); RBC 3.57 10x6/uL (4.20-6.10); RDW 13.7 % (11.5-14.5); WBC 7.1 10x3/uL (4.8-10.8)
[2019-04-12 05:48] LABS: CALCIUM 9.1 mg/dL (8.5-10.1); CARBON DIOXIDE 36.4 mmol/L (21.0-32.0); CREATININE - SERUM 1.8 mg/dL (0.6-1.3); MAGNESIUM - SERUM 2.2 mg/dL (1.8-2.4); POTASSIUM - SERUM 4.4 mmol/L (3.5-5.1)
[2019-04-12 08:36] VITALS: BP 152/78
--- NOTE | 2019-04-12 11:02 | MORECARE ---
CASE MANAGEMENT DISCHARGE SUMMARY PATIENT: JAN CAMERON UNIT: [id number] ADM DATE: 04/07/19 AGE: 63 : 54 SEX: M ROOM/BED: D.8074 AUTHOR: ROXANNE AGUILA PHYSICIAN: REFERRING PHYSICIAN: KAM WOOTEN DO DATE OF SERVICE: 04/12/19 Discharge Plan Patient Name: JAN CAMERON Facility: [facility]:[place] : 1955 Planned Disposition: Home Anticipated Discharge Date: 04/11/19 Discharge Date: Expected LOS: 4 Initial Reviewer: [email or web address] Initial Review Date: 04/10/2019 Generated: 04/12/19 12:02 pm Comments DCP- Discharge Planning Updated by [email or web address]: Natasha Alva on 04/12/19 9:[address] Patient Name: JAN CAMERON Admission Status: ER Accout number: [id number] Admission Date: 04-07-2019 : 1955 Admission Diagnosis: Attending: KAM WOOTEN Current LOS: 5 Anticipated DC Date: 04-11-2019 Planned Disposition: Home Primary Insurance: AETNA MEDICARE PPO or HMO Discharge Planning Comments: I SPOKE TO JUDD WITH [facility] AND THEY WILL BRING HIM OXYGEN TO THE HOSPITAL TODAY OR TOMORROW. CM TO FOLLOW AND ASSIST NEEDED. Prop And Effects Designer: Natasha Alva DCP- Discharge Planning Updated by [email or web address]: Cleve Abdi on 04/10/19 6:[address] Patient Name: JAN CAMERON Admission Status: ER Accout number: [id number] Admission Date: 04-07-2019 : 1955 Admission Diagnosis: Attending: KAM WOOTEN Current LOS: 3 Anticipated DC Date: 04-11-2019 Planned Disposition: Home Primary Insurance: AETNA MEDICARE PPO or HMO Discharge Planning Comments: CM RECEIVED INPATIENT REHAB PRESCREENING ORDER, CM MET WITH PT IN ROOM TO DISCUSS DISCHARGE PLANNING AND NEEDS. PT REPORTS LIVING AT HOME INDEPENDENTLY WITH HIS . PT REPORTS HAVING ALL NEEDED MEDICAL EQUIPMENT FROM [facility] AND NO OUTSIDE SERVICES ASSISTING IN THE HOME. CM DISCUSSED AVAILABILITY OF HOME HEALTH, REHAB SERVICES AND MEDICAL EQUIPMENT. PT REPORTS ABILITY TO TRANSFER HIMSELF TO WHEELCHAIR, SPENDS MOST OF HIS TIME IN HIS ROOM AND DOES NOT WALK. PT DECLINES REHAB, DECLINES HOME HEALTH AND WILL DISCHARGE HOME WITH SPOUSE. PT REPORTS HIS WILL PICK HIM UP FOR DISCHARGE HOME. IMPORTANT MESSAGE FROM MEDICARE PROVIDED AND EXPLAINED. PT PLANS TO DISCHARGE HOME WITH , DECLINES REHAB AND HOME HEALTH. SPOUSE TO TRANSPORT HOME. CM TO FOLLOW AND ASSIST NEEDED. Prop And Effects Designer: Cleve Abdi DCPIA - Discharge Planning Initial Assessment Updated by JENNA: Cleve Abdi on 04/10/19 7:20 pm * Is the patient Alert and Oriented? Yes * How many steps to enter\exit or inside your home? NONE * PCP DR. ALEXANDER * Pharmacy [facility] [address] * Preadmission Environment Home with Family * ADLs Independent * Equipment Cane Nebulizer Oxygen Power Chair or Electric Scooter Rolling Walker Shower Chair Suction and Supplies Walker * Other Equipment HOME AND PORTABLE OXYGEN [place] * List name and contact numbers for known caregivers / representatives who currently or will assist patient after discharge: PAUL CAMERON, SPOUSE, * Verbal permission to speak to the caregivers and representatives has been obtained from the patient. N/A * Community resources currently utilized None * Please name any agencies selected above. NONE * Additional services required to return to the preadmission environment? No * Can the patient safely return to the preadmission environment? Yes * Has this patient been hospitalized within the prior 30 days at any hospital? No Coverage Notice Reviewer: [id number] Abdi Notice Issued Date-Time: 04/10/2019 10:15 Notice Type: Patient Choice Letter Notice Delivered To: Patient Relationship to Patient: Radiophone Operator Name: Delivery Method: HAND - Hand Delivered Alea Days: Prior Verbal Notification: Recipient Understood Notice: Yes Recipient Signature: Yes Med Rec Note Co-signed by Attending: Coverage Notice Comment: NO REHAB!! Reviewer: [email or web address] Emma Abdi Notice Issued Date-Time: 04/10/2019 10:15 Notice Type: IM Discharge Notice Notice Delivered To: Patient Relationship to Patient: Radiophone Operator Name: Delivery Method: HAND - Hand Delivered Alea Days: Prior Verbal Notification: Recipient Understood Notice: Yes Recipient Signature: Yes Med Rec Note Co-signed by Attending: Coverage Notice Comment: Last DP export: 04/10/19 6:29 p Patient Name: JAN CAMERON Page [phone] at 1102 All edits/amendments must be made on the electronic document DICTATION DATE: 04/12/191101 CYBER DEFENSE FORENSICS ANALYST: INGRID 04/12/191101 RPT#: [id number] DC DATE: STATUS: ADM IN [facility] [address] [place] [address] END OF REPORT
[2019-04-12 12:22] VITALS: BP 133/68
--- NOTE | 2019-04-12 18:17 | NUR ---
I have reviewed this patient and I concur with the Shift Assessment completed by the Licensed Practical Nurse today this shift.
--- NOTE | 2019-04-12 19:56 | NUR ---
AWAKE AND DENIES NEEDS AT THIS TIME BED LOW AND LOCKED AND CALL LIGHT WITH PT WILL CONTINUE TO OBSERVE DROPLET ISOLATION
[2019-04-12 20:00] VITALS: BP 135/73
--- NOTE | 2019-04-12 21:30 | NUR ---
SUCTIONING PREFORMED DOWN TRACH AND TRACH INSERT CLEANED AT THIS TIME
[2019-04-13] VITALS: BP 126/56
[2019-04-13 04:00] VITALS: BP 130/74
--- NOTE | 2019-04-13 04:54 | NUR ---
I have reviewed this patient and I concur with the Shift Assessment completed by the Licensed Practical Nurse today this shift.
[2019-04-13 06:40] LABS: BASOPHILS 0 % (0-2); EOSINOPHILS 0.1 % (0-7); HEMATOCRIT 33.7 % (42.0-54.0); HEMOGLOBIN 10.3 g/dL (13.5-17.5); IMMATURE GRANULOCYTES 0.4 % (0-5); LYMPHOCYTES 22.1 % (15-50); MCH 29.3 pg (26.0-34.0); MCHC 30.6 g/dL (31.0-37.0); MEAN PLATELET VOLUME 11.6 fL (7.4-10.4); MONOCYTES 7.2 % (2-11); NEUTROPHILS 70.2 % (40-80); RBC 3.51 10x6/uL (4.20-6.10); RDW 14.1 % (11.5-14.5); WBC 7.9 10x3/uL (4.8-10.8)
[2019-04-13 06:58] LABS: ANION GAP 8.6 mmol/L (8-16); CALCIUM 9.2 mg/dL (8.5-10.1); CARBON DIOXIDE 31.5 mmol/L (21.0-32.0); CREATININE - SERUM 1.8 mg/dL (0.6-1.3); MAGNESIUM - SERUM 2.1 mg/dL (1.8-2.4); POTASSIUM - SERUM 4.1 mmol/L (3.5-5.1)
[2019-04-13 06:59] LABS: PLATELET COUNT 212 10x3/uL (130-400)
--- NOTE | 2019-04-13 11:54 | EC ---
PATIENT:JAN CAMERON DATE OF SERVICE: 04/07/19 SEX: M MEDICAL RECORD: [id number] DATE OF : 53 LOCATION:D.M2 D.213 AGE OF PATIENT: 63 ADMISSION DATE: 04/07/19 REFERRING PHYSICIAN: INTERPRETING PHYSICIAN: CINDY KNIGHT MD ECHOCARDIOGRAM REPORT ECHO CHARGES 5 ECHO LIMITED Date: 04/08/19 CLINICAL DIAGNOSIS: CHF HX CHF/CDPD ECHOCARDIOGRAPHIC MEASUREMENTS (adult normal given) AC root (d.<3.7cm) 2.8 cm LV Septum d (<1.2 cm> 2.0 cm Valve Excursion 1.5 cm LV Septum (systole) 2.2 cm Left Atria (s.<4.0cm> cm LVPW d(<1.2cm) 2.2 cm RV (d.<2.3cm) 5.2 cm LVPW (sytole) 2.3 cm LV diastole(<5.6CM) 4.5 cm MV E-F(>70mm/sec) cm LV systole 2.8 cm LVOT Diameter cm MV exc.(>10mm) 1.5 cm Est.ejection fraction (50-75%) % DOPPLER: LVIT cm/sec A cm/sec E cm/sec LA cm/sec RVSP 23 mmHg LVOT cm/sec AOP1/2T m/s Asc. Ao cm/sec RVOT cm/sec RA cm/sec PA cm/sec AV Gradient Peak mmHg AV Mean mmHg AV Area cm MV Gradient Peak mmHg MV Mean mmHg MV Area cm COMMENTS: Crystallography Teacher: Sy SHAHID Upholstery Trimmer: 1 Dr. Knight TAPE# PACS Pericardial Effusion N DATE OF SERVICE: 04/08/2019 PROCEDURE: Echocardiogram. FINDINGS: 1. Left ventricular chamber size is within normal limits. Left ventricular systolic function is preserved at 55% to 60%. 2. Left atrium, right atrium, and right ventricular chamber sizes are mildly dilated. 3. Valvular structure have normal structure and motion. ECHOCARDIOGRAM REPORT [id number] JAN CAMERON 4. Doppler interrogation reveals mild tricuspid regurgitation, no other valvular insufficiency or stenosis. Pulmonary systolic pressure estimated at 23 mmHg. 5. No evidence of pericardial effusion or left ventricular thrombus. TRANSINT:[id number] Voice Confirmation ID: [id number] DOCUMENT ID: [id number] CINDY KNIGHT MD at 1154 CC: [id number] DICTATION DATE: 04/08/19 1411 INSTRUMENT CALIBRATOR: 04/08/19 1629 ADM IN [place] [id number] [place] [address]
[2019-04-13 12:00] VITALS: BP 137/57
--- NOTE | 2019-04-13 12:09 | MORECARE ---
CASE MANAGEMENT DISCHARGE SUMMARY PATIENT: JAN CAMERON UNIT: [id number] ADM DATE: 04/07/19 AGE: 63 : 53 SEX: M ROOM/BED: D.4244 AUTHOR: ROXANNE AGUILA PHYSICIAN: REFERRING PHYSICIAN: KAM WOOTEN DO DATE OF SERVICE: 04/13/19 Discharge Plan Patient Name: JAN CAMERON Facility: [facility]:[place] : 1955 Planned Disposition: Home Anticipated Discharge Date: 04/11/19 Discharge Date: Expected LOS: 4 Initial Reviewer: [id number] Initial Review Date: 04/10/2019 Generated: 04/13/19 1:08 pm Comments DCP- Discharge Planning Updated by [id number]: Cleve Abdi on 04/13/19 11:[address] Patient Name: JAN CAMERON Encounter No: [id number] : 1955 Primary Insurance: AETNA MEDICARE PPO or HMO Anticipated DC Date: 04-11-2019 Planned Disposition: Home DCP follow-up note: CM SPOKE TO JUDD [facility]TA[facility]O [facility] WHO INFORMED CM THAT THEY ARE DELIVERING PORTABLE OXYGEN TO PT'S HOSPITAL ROOM FOR DISCHARGE HOME TODAY AND WILL FOLLOW UP WITH PT AT HOME TO ENSURE PT HAS PLENTY OF PORTABLE OXYGEN AT HOME. PT HAS DECLINED HOME HEALTH AND REHAB PLACEMENT, WILL DISCHARGE HOME WITH SPOUSE TODAY. FAMILY TO TRANSPORT HOME. BRITNEY Michael DCP- Discharge Planning Updated by [id number]: Natasha Alva on 04/12/19 9:[address] Patient Name: JAN CAMERON Admission Status: ER Accout number: [id number] Admission Date: 04-07-2019 : 1955 Admission Diagnosis: Attending: KAM WOOTEN Current LOS: 5 Anticipated DC Date: 04-11-2019 Planned Disposition: Home Primary Insurance: AETNA MEDICARE PPO or HMO Discharge Planning Comments: I SPOKE TO JUDD WITH [facility] AND THEY WILL BRING HIM OXYGEN TO THE HOSPITAL TODAY OR TOMORROW. CM TO FOLLOW AND ASSIST NEEDED. Punch Box Tender: Natasha Alva DCP- Discharge Planning Updated by [email or web address]: Cleve Abdi on 04/10/19 6:[address] Patient Name: JAN CAMERON Admission Status: ER Accout number: [id number] Admission Date: 04-07-2019 : 1955 Admission Diagnosis: Attending: KAM WOOTEN Current LOS: 3 Anticipated DC Date: 04-11-2019 Planned Disposition: Home Primary Insurance: AETNA MEDICARE PPO or HMO Discharge Planning Comments: CM RECEIVED INPATIENT REHAB PRESCREENING ORDER, CM MET WITH PT IN ROOM TO DISCUSS DISCHARGE PLANNING AND NEEDS. PT REPORTS LIVING AT HOME INDEPENDENTLY WITH HIS . PT REPORTS HAVING ALL NEEDED MEDICAL EQUIPMENT FROM [facility] AND NO OUTSIDE SERVICES ASSISTING IN THE HOME. CM DISCUSSED AVAILABILITY OF HOME HEALTH, REHAB SERVICES AND MEDICAL EQUIPMENT. PT REPORTS ABILITY TO TRANSFER HIMSELF TO WHEELCHAIR, SPENDS MOST OF HIS TIME IN HIS ROOM AND DOES NOT WALK. PT DECLINES REHAB, DECLINES HOME HEALTH AND WILL DISCHARGE HOME WITH SPOUSE. PT REPORTS HIS WILL PICK HIM UP FOR DISCHARGE HOME. IMPORTANT MESSAGE FROM MEDICARE PROVIDED AND EXPLAINED. PT PLANS TO DISCHARGE HOME WITH , DECLINES REHAB AND HOME HEALTH. SPOUSE TO TRANSPORT HOME. CM TO FOLLOW AND ASSIST NEEDED. Punch Box Tender: Cleve Abdi DCPIA - Discharge Planning Initial Assessment Updated by [id number]: Cleve Abdi on 04/10/19 7:20 pm * Is the patient Alert and Oriented? Yes * How many steps to enter\exit or inside your home? NONE * PCP DR. ALEXANDER * Pharmacy [facility] [address] * Preadmission Environment Home with Family * ADLs Independent * Equipment Cane Nebulizer Oxygen Power Chair or Electric Scooter Rolling Walker Shower Chair Suction and Supplies Walker * Other Equipment HOME [facility]GEN [facility] * List name and contact numbers for known caregivers / representatives who currently or will assist patient after discharge: PAUL CAMERON, SPOUSE, * Verbal permission to speak to the caregivers and representatives has been obtained from the patient. N/A * Community resources currently utilized None * Please name any agencies selected above. NONE * Additional services required to return to the preadmission environment? No * Can the patient safely return to the preadmission environment? Yes * Has this patient been hospitalized within the prior 30 days at any hospital? No Coverage Notice Reviewer: [id number] - Cleve Abdi Notice Issued Date-Time: 04/10/2019 10:15 Notice Type: Patient Choice Letter Notice Delivered To: Patient Relationship to Patient: Industrial Gas Fitter Name: Delivery Method: HAND - Hand Delivered Alea Days: Prior Verbal Notification: Recipient Understood Notice: Yes Recipient Signature: Yes Med Rec Note Co-signed by Attending: Coverage Notice Comment: NO REHAB!! Reviewer: [id number] - Cleve Abdi Notice Issued Date-Time: 04/10/2019 10:15 Notice Type: IM Discharge Notice Notice Delivered To: Patient Relationship to Patient: Industrial Gas Fitter Name: Delivery Method: HAND - Hand Delivered Alea Days: Prior Verbal Notification: Recipient Understood Notice: Yes Recipient Signature: Yes Med Rec Note Co-signed by Attending: Coverage Notice Comment: Last DP export: 04/12/19 10:02 a Patient Name: JAN CAMERON Page [phone] at 1209 All edits/amendments must be made on the electronic document DICTATION DATE: 04/13/191207 MASONRY SUPERVISOR: INGRID 04/13/19 120 RPT#: [id number] DC DATE: STATUS: ADM IN [facility] [place] [address] [place] [address] END OF REPORT
--- NOTE | 2019-04-13 13:59 | NUR ---
PT WANTING TO KNOW IF/WHEN HE WILL BE DISCHARGED TODAY. I STATED I WILL CONTACT ANP AND LET HIM KNOW. SPOKE WITH CORR[facility] SUN AND SHE STATES SHE WILL LOOK AT HIS STUFF SHORTLY. I VERBALIZED UNDERSTANDING. STATED THIS PT AND HE VERBALIZED UNDERSTANDING. PT HAS PORTABLE OXYGEN IN ROOM FOR DISCHARGED AND LET CORRINE SUN KNOW THIS.
--- NOTE | 2019-04-13 14:05 | NUR ---
PATIENT HAS NOT HAD A FLU SHOT UPON ADMIT STATUS - WHEN QUESTIONED FOR POSSIBLE DISCHARGE, HE STATES THAT HE HAD ONE A MONTH AGO.
[2019-04-13] MEDS ORDERED: LEVAQUIN750 MG PO (14:42)
[2019-04-13] MEDS ORDERED: CLEOCIN HCL300 MG PO (14:44)
[2019-04-13] MEDS ORDERED: STERAPRED DS 1010 MG PO (14:45)
[2019-04-13] MEDS ORDERED: PROTONIX40 MG PO (14:45)
--- NOTE | 2019-04-13 16:18 | MORECARE ---
CASE MANAGEMENT DISCHARGE SUMMARY PATIENT: JAN CAMERON UNIT: [id number] ADM DATE: 04/07/19 AGE: 63 : 53 SEX: M ROOM/BED: D.7946 AUTHOR: ROXANNE AGUILA PHYSICIAN: REFERRING PHYSICIAN: KAM WOOTEN DO DATE OF SERVICE: 04/13/19 Discharge Plan Patient Name: JAN CAMERON Facility: [facility]:[place] : 1955 Planned Disposition: Home Anticipated Discharge Date: 04/11/19 Discharge Date: Expected LOS: 4 Initial Reviewer: [id number] Initial Review Date: 04/10/2019 Generated: 04/13/19 5:17 pm Comments DCP- Discharge Planning Updated by [id number]: Cleve Abdi on 04/13/19 3:[address] Patient Name: JAN CAMERON Encounter No: [id number] : 1955 Primary Insurance: AETNA MEDICARE PPO or HMO Anticipated DC Date: 04-11-2019 Planned Disposition: Home DCP follow-up note: CM MET WITH PT IN ROOM TO DISCUSS DISCHARGE NEEDS AND PLANNING. CM DISCUSSED AVAILABILITY OF HOME HEALTH, REHAB SERVICES AND MEDICAL EQUIPMENT. PT DENIES DISCHARGE NEEDS. FAMILY TO TRANSPORT HOME AT DISCHARG TODAY. PT REPORTS [facility] HAVING DELIVERED PORTABLE OXGYEN TO HIM TODAY FOR DISCHARGE HOME AND HAVING PLENTY OF OXYGEN AT HOME. IMPORTANT MESSAGE FROM MEDICARE PROVIDED AND EXPLAINED. CHEESE TESTER NURSE NOTIFIED. RBITNEY Michael DCP- Discharge Planning Updated by [id number]: Cleve Abdi on 04/13/19 11:[address] Patient Name: JAN CAMERON Encounter No: [id number] : 1955 Primary Insurance: AETNA MEDICARE PPO or HMO Anticipated DC Date: 04-11-2019 Planned Disposition: Home DCP follow-up note: CM SPOKE TO JUDD OF [facility] WHO INFORMED CM THAT THEY ARE DELIVERING PORTABLE OXYGEN TO PT'S HOSPITAL ROOM FOR DISCHARGE HOME TODAY AND WILL FOLLOW UP WITH PT AT HOME TO ENSURE PT HAS PLENTY OF PORTABLE OXYGEN AT HOME. PT HAS DECLINED HOME HEALTH AND REHAB PLACEMENT, WILL DISCHARGE HOME WITH SPOUSE TODAY. FAMILY TO TRANSPORT HOME. Cleve Trinidad, CASE MANAGEMENT DCP- Discharge Planning Updated by [id number]: Natasha Alva on 04/12/19 9:[address] Patient Name: JAN CAMERON Admission Status: ER Accout number: [id number] Admission Date: 04-07-2019 : 1955 Admission Diagnosis: Attending: KAM WOOTEN Current LOS: 5 Anticipated DC Date: 04-11-2019 Planned Disposition: Home Primary Insurance: AETNA MEDICARE PPO or HMO Discharge Planning Comments: I SPOKE TO JUDD WITH [facility] AND THEY WILL BRING HIM OXYGEN TO THE HOSPITAL TODAY OR TOMORROW. CM TO FOLLOW AND ASSIST NEEDED. Director Financial Planning: Natasha Nida DCP- Discharge Planning Updated by [id number]: Cleve Abdi on 04/10/19 6:[address] Patient Name: JAN CAMERON Admission Status: ER Accout number: [id number] Admission Date: 04-07-2019 : 1955 Admission Diagnosis: Attending: KAM WOOTEN Current LOS: 3 Anticipated DC Date: 04-11-2019 Planned Disposition: Home Primary Insurance: AETNA MEDICARE PPO or HMO Discharge Planning Comments: CM RECEIVED INPATIENT REHAB PRESCREENING ORDER, CM MET WITH PT IN ROOM TO DISCUSS DISCHARGE PLANNING AND NEEDS. PT REPORTS LIVING AT HOME INDEPENDENTLY WITH HIS . PT REPORTS HAVING ALL NEEDED MEDICAL EQUIPMENT FROM [facility] AND NO OUTSIDE SERVICES ASSISTING IN THE HOME. CM DISCUSSED AVAILABILITY OF HOME HEALTH, REHAB SERVICES AND MEDICAL EQUIPMENT. PT REPORTS ABILITY TO TRANSFER HIMSELF TO WHEELCHAIR, SPENDS MOST OF HIS TIME IN HIS ROOM AND DOES NOT WALK. PT DECLINES REHAB, DECLINES HOME HEALTH AND WILL DISCHARGE HOME WITH SPOUSE. PT REPORTS HIS WILL PICK HIM UP FOR DISCHARGE HOME. IMPORTANT MESSAGE FROM MEDICARE PROVIDED AND EXPLAINED. PT PLANS TO DISCHARGE HOME WITH , DECLINES REHAB AND HOME HEALTH. SPOUSE TO TRANSPORT HOME. CM TO FOLLOW AND ASSIST NEEDED. Director Financial Planning: Cleve Abdi DCPIA - Discharge Planning Initial Assessment Updated by [id number]: Cleve Abdi on 04/10/19 7:20 pm * Is the patient Alert and Oriented? Yes * How many steps to enter\exit or inside your home? NONE * PCP DR. ALEXANDER * Pharmacy [facility] [address] * Preadmission Environment Home with Family * ADLs Independent * Equipment Cane Nebulizer Oxygen Power Chair or Electric Scooter Rolling Walker Shower Chair Suction and Supplies Walker * Other Equipment HOME AND PORTABLE OXYGEN [facility] * List name and contact numbers for known caregivers / representatives who currently or will assist patient after discharge: PAUL CAMERON, SPOUSE, * Verbal permission to speak to the caregivers and representatives has been obtained from the patient. N/A * Community resources currently utilized None * Please name any agencies selected above. NONE * Additional services required to return to the preadmission environment? No * Can the patient safely return to the preadmission environment? Yes * Has this patient been hospitalized within the prior 30 days at any hospital? No Coverage Notice Reviewer: JENNA Abdi Notice Issued Date-Time: 04/10/2019 10:15 Notice Type: Patient Choice Letter Notice Delivered To: Patient Relationship to Patient: Process Server Name: Delivery Method: HAND - Hand Delivered Alea Days: Prior Verbal Notification: Recipient Understood Notice: Yes Recipient Signature: Yes Med Rec Note Co-signed by Attending: Coverage Notice Comment: NO REHAB!! Reviewer: JENNA Abdi Notice Issued Date-Time: 04/10/2019 10:15 Notice Type: IM Discharge Notice Notice Delivered To: Patient Relationship to Patient: Process Server Name: Delivery Method: HAND - Hand Delivered Alea Days: Prior Verbal Notification: Recipient Understood Notice: Yes Recipient Signature: Yes Med Rec Note Co-signed by Attending: Coverage Notice Comment: Reviewer: JENNA Abdi Notice Issued Date-Time: 04/13/2019 15:20 Notice Type: IM Discharge Notice Notice Delivered To: Patient Relationship to Patient: Process Server Name: Delivery Method: HAND - Hand Delivered Alea Days: Prior Verbal Notification: Recipient Understood Notice: Yes Recipient Signature: Yes Med Rec Note Co-signed by Attending: Coverage Notice Comment: Last DP export: 04/13/19 11:09 a Patient Name: JAN CAMERON Page [phone] at 1618 All edits/amendments must be made on the electronic document DICTATION DATE: 04/13/191616 ORDER PICKER: INGRID 04/13/191616 RPT#: [id number] DC DATE: STATUS: ADM IN [facility] [address] [place] [address] END OF REPORT
--- NOTE | 2019-04-13 16:47 | NUR ---
I have reviewed this patient and I concur with the Shift Assessment completed by the Licensed Practical Nurse today this shift.
--- NOTE | 2019-04-13 16:49 | NUR ---
RIGHT FA 20G IV DC'D WITH CATH INTACT. TELEMETRY DC'D. HOME PORTABLE OXYGEN HOOKED UP AND PLACED ON PT. DISCHARGE INSTRUCTIONS GIVEN TO PT. PT HAS NO FURTHER QUESTIONS. CHART COPY SIGNED.
--- NOTE | 2019-04-13 17:02 | NUR ---
PT TAKEN DOWN VIA WC BY MARINE TECHNICIAN AND LEFT WITH SPOUSE IN PERSONAL CAR.
--- NOTE | 2019-04-13 17:18 | NUR ---
OT NOTE: PT REQUIRED CGA FOR SUPINE TO SIT. PT COMPLETED BED MOB TASKS WITH MIN A/CGA. PT REQUIRED VERBAL CUES FOR INCREASED PARTICIPATION. PT STATED HE WANTS TO LEAVE TODAY. [phone] THANK YOU,MARIELA MONTAGUE
--- NOTE | 2019-04-14 08:49 | MORECARE ---
CASE MANAGEMENT DISCHARGE SUMMARY PATIENT: JAN CAMERON UNIT: [id number] ADM DATE: 04/07/19 AGE: 63 : 53 SEX: M ROOM/BED: D.3692 AUTHOR: ROXANNE AGUILA PHYSICIAN: REFERRING PHYSICIAN: KAM WOOTEN DO DATE OF SERVICE: 04/14/19 Discharge Plan Patient Name: JAN CAMERON Facility: [facility]:[place] : 1955 Planned Disposition: Home Anticipated Discharge Date: 04/13/19 Discharge Date: 04/13/2019 Expected LOS: 6 Initial Reviewer: [email or web address] Initial Review Date: 04/10/2019 Generated: 04/14/19 9:49 am Comments DCP- Discharge Planning Updated by [email or web address]: Cleve Abdi on 04/13/19 3:[address] Patient Name: JAN CAMERON Encounter No: [id number] : 1955 Primary Insurance: AETNA MEDICARE PPO or HMO Anticipated DC Date: 04-11-2019 Planned Disposition: Home DCP follow-up note: CM MET WITH PT IN ROOM TO DISCUSS DISCHARGE NEEDS AND PLANNING. CM DISCUSSED AVAILABILITY OF HOME HEALTH, REHAB SERVICES AND MEDICAL EQUIPMENT. PT DENIES DISCHARGE NEEDS. FAMILY TO TRANSPORT HOME AT DISCHARG TODAY. PT REPORTS [facility] HAVING DELIVERED PORTABLE OXGYEN TO HIM TODAY FOR DISCHARGE HOME AND HAVING PLENTY OF OXYGEN AT HOME. IMPORTANT MESSAGE FROM MEDICARE PROVIDED AND EXPLAINED. BANDER AND CELLOPHANER HELPER MACHINE NURSE NOTIFIED. BRITNEY Michael DCP- Discharge Planning Updated by [id number]: Cleve Abdi on 04/13/19 11:[address] Patient Name: JAN CAMERON Encounter No: [id number] : 1955 Primary Insurance: AETNA MEDICARE PPO or HMO Anticipated DC Date: 04-11-2019 Planned Disposition: Home DCP follow-up note: CM SPOKE TO JUDD OF [facility] WHO INFORMED CM THAT THEY ARE DELIVERING PORTABLE OXYGEN TO PT'S HOSPITAL ROOM FOR DISCHARGE HOME TODAY AND WILL FOLLOW UP WITH PT AT HOME TO ENSURE PT HAS PLENTY OF PORTABLE OXYGEN AT HOME. PT HAS DECLINED HOME HEALTH AND REHAB PLACEMENT, WILL DISCHARGE HOME WITH SPOUSE TODAY. FAMILY TO TRANSPORT HOME. Cleve Boerne, CASE MANAGEMENT DCP- Discharge Planning Updated by [id number]: Natasha Alva on 04/12/19 9:[address] Patient Name: JAN CAMERON Admission Status: ER Accout number: [id number] Admission Date: 04-07-2019 : 1955 Admission Diagnosis: Attending: KAM WOOTEN Current LOS: 5 Anticipated DC Date: 04-11-2019 Planned Disposition: Home Primary Insurance: AETNA MEDICARE PPO or HMO Discharge Planning Comments: I SPOKE TO JUDD WITH [facility] AND THEY WILL BRING HIM OXYGEN TO THE HOSPITAL TODAY OR TOMORROW. CM TO FOLLOW AND ASSIST NEEDED. Event Coordinator Marketing And Sales: Natasha Nida DCP- Discharge Planning Updated by [id number]: Cleve Abdi on 04/10/19 6:[address] Patient Name: JAN CAMERON Admission Status: ER Accout number: [id number] Admission Date: 04-07-2019 : 1955 Admission Diagnosis: Attending: KAM WOOTEN Current LOS: 3 Anticipated DC Date: 04-11-2019 Planned Disposition: Home Primary Insurance: AETNA MEDICARE PPO or HMO Discharge Planning Comments: CM RECEIVED INPATIENT REHAB PRESCREENING ORDER, CM MET WITH PT IN ROOM TO DISCUSS DISCHARGE PLANNING AND NEEDS. PT REPORTS LIVING AT HOME INDEPENDENTLY WITH HIS . PT REPORTS HAVING ALL NEEDED MEDICAL EQUIPMENT FROM [facility], [place] AND NO OUTSIDE SERVICES ASSISTING IN THE HOME. CM DISCUSSED AVAILABILITY OF HOME HEALTH, REHAB SERVICES AND MEDICAL EQUIPMENT. PT REPORTS ABILITY TO TRANSFER HIMSELF TO WHEELCHAIR, SPENDS MOST OF HIS TIME IN HIS ROOM AND DOES NOT WALK. PT DECLINES REHAB, DECLINES HOME HEALTH AND WILL DISCHARGE HOME WITH SPOUSE. PT REPORTS HIS WILL PICK HIM UP FOR DISCHARGE HOME. IMPORTANT MESSAGE FROM MEDICARE PROVIDED AND EXPLAINED. PT PLANS TO DISCHARGE HOME WITH , DECLINES REHAB AND HOME HEALTH. SPOUSE TO TRANSPORT HOME. CM TO FOLLOW AND ASSIST NEEDED. Event Coordinator Marketing And Sales: Cleve Abdi DCPIA - Discharge Planning Initial Assessment Updated by [email or web address]: Cleve Abdi on 04/10/19 7:20 pm * Is the patient Alert and Oriented? Yes * How many steps to enter\exit or inside your home? NONE * PCP DR. ALEXANDER * Pharmacy [facility] [address] * Preadmission Environment Home with Family * ADLs Independent * Equipment Cane Nebulizer Oxygen Power Chair or Electric Scooter Rolling Walker Shower Chair Suction and Supplies Walker * Other Equipment HOME AND PORTABLE OXYGEN [facility] * List name and contact numbers for known caregivers / representatives who currently or will assist patient after discharge: PAUL CAMERON, SPOUSE, * Verbal permission to speak to the caregivers and representatives has been obtained from the patient. N/A * Community resources currently utilized None * Please name any agencies selected above. NONE * Additional services required to return to the preadmission environment? No * Can the patient safely return to the preadmission environment? Yes * Has this patient been hospitalized within the prior 30 days at any hospital? No Coverage Notice Reviewer: JENNA Abdi Notice Issued Date-Time: 04/10/2019 10:15 Notice Type: Patient Choice Letter Notice Delivered To: Patient Relationship to Patient: Starch Mangle Tender Name: Delivery Method: HAND - Hand Delivered Alea Days: Prior Verbal Notification: Recipient Understood Notice: Yes Recipient Signature: Yes Med Rec Note Co-signed by Attending: Coverage Notice Comment: NO REHAB!! Reviewer: JENNA Abdi Notice Issued Date-Time: 04/10/2019 10:15 Notice Type: IM Discharge Notice Notice Delivered To: Patient Relationship to Patient: Starch Mangle Tender Name: Delivery Method: HAND - Hand Delivered Alea Days: Prior Verbal Notification: Recipient Understood Notice: Yes Recipient Signature: Yes Med Rec Note Co-signed by Attending: Coverage Notice Comment: Reviewer: JENNA Abdi Notice Issued Date-Time: 04/13/2019 15:20 Notice Type: IM Discharge Notice Notice Delivered To: Patient Relationship to Patient: Starch Mangle Tender Name: Delivery Method: HAND - Hand Delivered Alea Days: Prior Verbal Notification: Recipient Understood Notice: Yes Recipient Signature: Yes Med Rec Note Co-signed by Attending: Coverage Notice Comment: Last DP export: 04/13/19 3:18 p Patient Name: JAN CAMERON Page [phone] at 0849 All edits/amendments must be made on the electronic document DICTATION DATE: 04/14/19 0849 PHARMACIST APPRENTICE: INGRID 04/14/19 0849 RPT#: [id number] DC DATE:04/13/19 STATUS: DIS IN [place] [id number] [place] [id number] END OF REPORT
== END 2019-04-13 17:11 | disposition home or self-care (01) | DRG 177 ==
LOC: D.ER 16:57 → D.M2 21:32
PROVIDERS: Family Medicine; ADMIT Family Medicine; ATTEND Family Medicine
DX: J15.6 Pneumonia due to other Gram-negative bacteria (principal); J96.21 Acute and chronic respiratory failure with hypoxia; I50.33 Acute on chronic diastolic (congestive) heart failure; J44.0 Chronic obstructive pulmonary disease with (acute) lower respiratory infection; N17.9 Acute kidney failure, unspecified; E87.1 Hypo-osmolality and hyponatremia; F17.213 Nicotine dependence, cigarettes, with withdrawal; J44.1 Chronic obstructive pulmonary disease with (acute) exacerbation; J69.0 Pneumonitis due to inhalation of food and vomit; E11.65 Type 2 diabetes mellitus with hyperglycemia; I11.0 Hypertensive heart disease with heart failure; E87.6 Hypokalemia; D64.9 Anemia, unspecified; F12.90 Cannabis use, unspecified, uncomplicated; N40.0 Benign prostatic hyperplasia without lower urinary tract symptoms; I25.10 Atherosclerotic heart disease of native coronary artery without angina pectoris; I48.91 Unspecified atrial fibrillation; Z93.0 Tracheostomy status; J13 Pneumonia due to Streptococcus pneumoniae